=== PATIENT | female | born 1980 | race Caucasian/White ===

== ENCOUNTER 2017-05-14 20:52 | Emergency (ER) | payer OTHER ==
[~2017-05-14] VITALS: Ht 177.8 cm; Wt 129.0 kg
[~2017-05-14 20:52] MED LIST: ACET500T98 PO; AZIT250T94 PO; BACTDS PO; CLIN-73 PO; FAMO-18 PO; FLUT9.9S NASAL; HYDR-3498 PO; HYDR-762 PO; HYDR-906 PO; IBUP-1542 PO; IBUP200C PO; IBUP800T25 PO; INSU100C SC; LORA10TA3 PO; MELO-110 PO; NPH SQ; OMEP20CA16 PO; OXYC1TAB23 PO; ZOF8 PO
[2017-05-14 21:10] VITALS: Ht 177.8 cm; Wt 129.0 kg
[2017-05-14] MEDS ORDERED: ONDANSETRON (ODT) 4 MG TAB ODT STA (21:38)
[2017-05-14] MEDS ORDERED: morphine 10 MG INJ IM ONE (22:00)
--- NOTE | 2017-05-14 22:10 | ERD ---
ER Documentation Chief Complaint Date/Time DATE: 05/14/17 TIME: 22:09 Chief Complaint tooth broke today, tooth pain with headache HPI This is a very pleasant 36 year female who broke her tooth today. She complained of tooth pain and headache. Noted to have severely elevated blood pressure in triage. No nausea no vomiting no focal neurological complaints. No other current issues. ROS All systems reviewed and are negative except as per history of present illness. Medications Home Meds Active Scripts Ibuprofen* (Motrin*) 600 Mg Tab, 600 MG PO Q6H Y for PAIN, #20 TAB Prov:HERNÁN GALDAMEZ MD 07/15/16 Hydrocodone/Acetaminophen ([facility] 5-325 Tablet) 1 Each Tablet, 1 EACH PO QID, # 14 TAB Prov:HERNÁN GALDAMEZ MD 07/15/16 Clindamycin Hcl* (Clindamycin Hcl*) 300 Mg Capsule, 300 MG PO QID for 10 Days, CAP Prov:HERNÁN GALDAMEZ MD 07/15/16 Clindamycin Hcl* (Clindamycin Hcl*) 300 Mg Capsule, 300 MG PO QID for 7 Days, CAP Prov:RABIA ORTIZ NP 01/03/16 Hydrocodone Bit-Acetaminophen* ([facility]*) 5-325 Mg Tab, 1 TAB PO Q6 Y for PAIN, # 7 TAB Prov:RABIA ORTIZ NP 01/03/16 Ondansetron Hcl* (Zofran* ODT) 8 mg -ODT Tab.disper, 8 MG PO DAILY Y for NAUSEA AND/OR VOMITING, #10 TAB 0 Refills Prov:ERMA ROBERTS PA-C 11/23/15 Loratadine* (Loratadine*) 10 Mg Tablet, 10 MG PO DAILY, #30 TAB 0 Refills Prov:ERMA ROBERTS PA-C 11/23/15 Azithromycin* (Zithromax*) 250 Mg Tablet, 250 MG PO .LAYNE DIRECTED, #6 TAB 0 Refills TAKE 500 MG (2 TABS) THE FIRST DAY THEN 250 MG (1 TAB) DAYS 2-5 Prov:ERMA ROBERTS PA-C 11/23/15 Fluticasone Propionate (Flonase Allergy Relief) 9.9 Ml [place].susp, 1 SPRAY NASAL BID, #1 BOTTLE 0 Refills TO EACH NOSTRIL Prov:ERMA ROBERTS PA-C 11/23/15 Ibuprofen* (Ibuprofen*) 200 Mg Capsule, 200 MG PO Q6, #30 CAP 0 Refills Prov:ALEJANDRAERMA ELLER 11/23/15 Acetaminophen (Tylenol) 500 Mg Tab, 500 MG PO Q6, #30 TAB 0 Refills Prov:ALEJANDRAERMA ELLER 11/23/15 Ibuprofen* (Motrin*) 600 Mg Tab, 600 MG PO Q8, #20 Prov:JAYLEN MENA 08/05/15 Hydrocodone Bit-Acetaminophen* ([facility]*) 5-325 Mg Tab, 1 TAB PO Q6 for PAIN, #7 TAB Prov:LEONARDOEJAYLEN MOCK 08/05/15 Ibuprofen* (Motrin*) 600 Mg Tab, 600 MG PO Q8, #20 Prov:LEONARDOEORAJAYLEN 08/05/15 Hydrocodone Bit-Acetaminophen* ([facility]*) 5-325 Mg Tab, 1 TAB PO Q6 Y for PAIN LEVEL 6-10, #7 TAB Prov:JAYLEN MENA 08/05/15 Omeprazole* (Omeprazole*) 20 Mg Capsule.dr, 20 MG PO DAILY, #30 CAP Prov:MESFIN JEAN BAPTISTE PA-C 07/19/15 Famotidine* (Pepcid*) 20 Mg Tablet, 20 MG PO AM for 5 Days, TAB Prov:MESFIN JEAN BAPTISTE PA-C 07/19/15 Ibuprofen* (Ibuprofen*) 800 Mg Tab, 800 MG PO Q6H Y for PAIN, #30 TAB Prov:MESFIN JEAN BAPTISTE PA-C 07/19/15 Oxycodone Hcl-Acetaminophen* (Oxycodone Hcl-Acetaminophen*) 5-325 Mg Tablet, 1 TAB PO Q4H Y for PAIN LEVEL 6-10, #30 TAB Prov:MESFIN JEAN BAPTISTE PA-C 07/19/15 Hydrocodone Bit-Acetaminophen* ([facility]*) 10-325 Mg Tablet, 1 TAB PO Q6 Y for PAIN , #20 TAB Prov:AUDREY HART NP 06/16/15 Ibuprofen* (Ibuprofen*) 600 Mg Tablet, 600 MG PO Q6H Y for back pain, #30 TAB Prov:PAOLA HERNANDEZ 04/16/15 Reported Medications Sulfamethoxazole-Trimethoprim* (Bactrim* DS) 800-160 Mg Tab, 1 TAB PO BID X 3 DAYS, TAB 04/07/15 Meloxicam* (Mobic*) 15 Mg Tablet, 15 MG PO DAILY, TAB 04/07/15 Hydrocodone Bit-Acetaminophen ([facility]) 5-325 Mg Tablet, 1 TAB PO Q6-8 HOURS Y for PAIN, TAB 04/07/15 Insulin Human Nph (Novolin-N) 100 Units/Ml Susp, 0 SQ 04/07/15 Insulin Lispro (Humalog) 100 U/Ml Cartridge, 0 SC SLIDING SCALE AC, EA 04/07/15 Allergies Allergies: Coded Allergies: Penicillins (Verified Allergy, Severe, SEIZURES, 11/23/15) ciprofloxacin (Verified Allergy, Severe, RASHES, 11/23/15) PMhx/Soc History of Surgery: No Anesthesia Reaction: No Hx Neurological Disorder: Yes (SCIATICA; herniated disk) Hx Respiratory Disorders: No Hx Cardiac Disorders: Yes (HTN ) Hx Psychiatric Problems: No Hx Miscellaneous Medical Probl: Yes (iddm) Hx Alcohol Use: Yes (rarely) Hx Substance Use: No Hx Tobacco Use: No Smoking Status: Never smoker Physical Exam Vitals Vital Signs Date Time Temp Pulse Resp B/P Pulse Ox O2 Delivery O2 Flow Rate FiO2 05/14/17 21:32 191/113 05/14/17 21:10 97.4 99 20 218/120 99 Physical Exam Const: [] Head: Atraumatic Eyes: Normal Conjunctiva ENT: Normal External Ears, Nose and Mouth. Neck: Full range of motion..~ No meningismus. Resp: Clear to auscultation bilaterally Cardio: Regular rate and rhythm, no murmurs Abd: Soft, non tender, non distended. Normal bowel sounds Skin: No petechiae or rashes Back: No midline or flank tenderness Ext: No cyanosis, or edema Neur: Awake and alert Psych: Normal Mood and Affect Results 24 hrs Current Medications Medications (Trade) Dose Ordered Sig/Rafael Route PRN Reason Start Time Stop Time Status Last Admin Dose Admin Morphine Sulfate (morphine) 4 mg ONCE ONCE IM 05/14/17 22:00 05/14/17 22:01 DC 05/14/17 21:59 Ondansetron HCl (Zofran Odt) 4 mg ONCE STAT ODT 05/14/17 21:38 05/14/17 21:40 DC 05/14/17 21:59 Clonidine (Catapres) 0.2 mg ONCE ONCE PO 05/14/17 22:00 05/14/17 22:01 DC 05/14/17 21:59 Procedures/MDM Patient's blood pressure was elevated (>120/80) but appears stable without evidence of hypertension emergency or urgency. The patient was counseled about the risks of hypertension and urged to pursue outpatient monitoring and therapy within a week with their primary care physician. Dental she will be treated with clindamycin and [facility]. Follow-up with primary care physician. Departure Diagnosis: Primary Impression: Tooth disease Additional Impression: Hypertension Hypertension type: essential hypertension Qualified Code: I10 - Essential hypertension Condition: Stable TOM MARTÍNEZ May 14, 2017 22:10
[2017-05-14] MEDS ORDERED: HYDR-3671 PO (22:12)
[2017-05-14] MEDS ORDERED: HYDR-902 PO (22:12)
[2017-05-14] MEDS ORDERED: CLIN-73 PO (22:12)
[2017-05-14 22:37] VITALS: BP 151/90; PULSE 87; RESP 16
[2017-05-14] MEDS ORDERED: LANT3I SC (22:42)
[2017-05-14] MEDS ORDERED: METF500T4 PO (22:42)
[2017-05-14] MEDS ORDERED: GLIP-95 PO (22:42)
[2017-05-14] MEDS ORDERED: IBUP200C PO (22:44)
== END 2017-05-14 22:39 | disposition home or self-care (01) ==
LOC: E/R 20:52
DX: K08.9 Disorder of teeth and supporting structures, unspecified (principal); I10 Essential (primary) hypertension; E11.9 Type 2 diabetes mellitus without complications; Z79.4 Long term (current) use of insulin
CPT/HCPCS: 96372; J2270; Z7502; Z7610

== ENCOUNTER 2017-10-31 08:30 | Emergency (ER) | payer OTHER ==
[~2017-10-31] VITALS: Wt 127.3 kg
[~2017-10-31 08:30] MED LIST changes: -AZIT250T94 PO; -BACTDS PO; -FAMO-18 PO; -FLUT9.9S NASAL; +GLIP-95 PO; -HYDR-3498 PO; +HYDR-3671 PO; -HYDR-762 PO; +HYDR-902 PO; -HYDR-906 PO; -IBUP-1542 PO; -IBUP800T25 PO; -INSU100C SC; +LANT3I SC; -LORA10TA3 PO; -MELO-110 PO; +METF500T4 PO; -NPH SQ; -OMEP20CA16 PO; -OXYC1TAB23 PO; -ZOF8 PO
[2017-10-31] MEDS ORDERED: HYDROCODONE/APAP (5/325) TAB PO ONE (10:30)
[2017-10-31 10:42] LABS: URINE BLOOD (Dip) POC Trace-lysed (NEGATIVE)
[2017-10-31] MEDS ORDERED: NITR-58 PO (11:39)
[2017-10-31] MEDS ORDERED: FLUC150T17 PO (11:40)
[2017-10-31] MEDS ORDERED: HYDR-906 PO (11:40)
[2017-10-31] MEDS ORDERED: MUPI22OI2 TOP (11:41)
[2017-10-31 11:53] VITALS: BP 143/88; PULSE 76; RESP 18; TEMP 98.4
--- NOTE | 2017-10-31 12:06 | ERD ---
ER Documentation Chief Complaint Chief Complaint "toothache and yeast infection" HPI This is a 36-year-old female presents to the ER with multiple complaints. Patient developed tooth pain yesterday, it is described as throbbing in quality and constant. She states that she notices a little bit of swelling to her gum, however denies any fevers or chills. Patient is also complaining of a yeast infection which she has had over the last month, she tried [id number] Monistat however did not work. She does have white discharge and has a lot of itchiness. She has a past medical history of diabetes. She is also complaining of urinary frequency and dysuria and states that she has a diabetic ulcer near her lower abdomen. Last normal menstrual period was in August, she states she does not have regular periods she is currently sexually active with one partner and does not use any condoms ROS 12 point review of systems was done, all negative except per HPI. Medications Home Meds Active Scripts Mupirocin* (Bactroban*) 2% -22 Gram Oint...g., 1 APPLIC TOP BID for 7 Days, EA Prov:SADIE GARCIA 10/31/17 Fluconazole* (Diflucan*) 150 Mg Tablet, 150 MG PO ONCE, #1 TAB Prov:SADIE GARCIA 10/31/17 Hydrocodone/Acetaminophen ([facility] 5-325 Tablet) 1 Each Tablet, 1 TAB PO Q6H Y for PAIN, #20 TAB Prov:SADIE GARCIA 10/31/17 Nitrofurantoin Monohyd Macrocr* (Macrobid*) 100 Mg Capsr, 100 MG PO BID for 14 Days, CAP Prov:SADIE GARCIA 10/31/17 Hydralazine Hcl* (Hydralazine Hcl*) 25 Mg Tab, 25 MG PO Q6H, #60 TAB Prov:TOM MARTÍNEZ S. 05/14/17 Hydrocodone/Acetaminophen ([facility] 10-325 Tablet) 1 Each Tablet, 1 TAB PO Q6H Y for PAIN, #20 TAB Prov:TOM MARTÍNEZ S. 05/14/17 Clindamycin Hcl* (Clindamycin Hcl*) 300 Mg Capsule, 300 MG PO TID for 10 Days, CAP Prov:TOM MARTÍNEZ. 05/14/17 Acetaminophen (Tylenol) 500 Mg Tab, 500 MG PO Q6, #30 TAB 0 Refills Prov:ALEJANDRAERMA ELLER 11/23/15 Reported Medications Ibuprofen* (Ibuprofen*) 200 Mg Capsule, 400 MG PO Q6, CAP 05/14/17 Glipizide* (Glipizide*) 10 Mg Tablet, 10 MG PO BID, TAB 05/14/17 Metformin* (Glucophage*) 500 Mg Tab, 1000 MG PO WITH BREAKFAST DINNE, #30 TAB 05/14/17 Insulin Glargine* (Lantus*) 100 Unit/Ml Soln, 90 UNIT SC QHS, #1 VIAL 05/14/17 Allergies Allergies: Coded Allergies: Penicillins (Unverified Allergy, Severe, SEIZURES, 10/31/17) ciprofloxacin (Unverified Allergy, Severe, RASHES, 10/31/17) PMhx/Soc History of Surgery: No Anesthesia Reaction: No Hx Neurological Disorder: Yes (SCIATICA; herniated disk) Hx Respiratory Disorders: No Hx Cardiac Disorders: Yes (HTN ) Hx Psychiatric Problems: No Hx Miscellaneous Medical Probl: Yes (iddm) Hx Alcohol Use: Yes (rarely) Hx Substance Use: No Hx Tobacco Use: No Smoking Status: Never smoker Physical Exam Vitals Vital Signs Date Time Temp Pulse Resp B/P Pulse Ox O2 Delivery O2 Flow Rate FiO2 10/31/17 11:53 98.4 76 18 143/88 96 Room Air 10/31/17 08:41 98.0 80 20 165/76 98 Physical Exam GENERAL: The patient is well developed and appropriate for usual state of health , in no apparent distress. HEENT: Atraumatic. multiple dental caries-> no dental abscess is seen. no pain or fullness to the bottom of the mouth CHEST: Clear to auscultation bilaterally. There are no rales, wheezes or rhonchi. HEART: Regular rate and rhythm. No murmurs, clicks, rubs or gallops. ABDOMEN: Soft, nontender and nondistended. : there is an area of redness and warmth to the touch to the mons pubis NEURO: Alert and oriented. SKIN: There is no apparent rash or petechia. The skin is warm and dry. Results 24 hrs Laboratory Tests Test 10/31/17 10:41 Bedside Urine pH (LAB) 5.5 Bedside Urine Protein (LAB) Negative Bedside Urine Glucose (UA) 0.25% Bedside Urine Ketones (LAB) Negative Bedside Urine Blood Trace-lysed Bedside Urine Nitrite (LAB) Positive Bedside Urine Leukocyte Esterase (L 1+ Current Medications Medications (Trade) Dose Ordered Sig/Rafael Route PRN Reason Start Time Stop Time Status Last Admin Dose Admin Acetaminophen/ Hydrocodone Bitart ([facility] (5/325)) 1 tab ONCE ONCE PO 10/31/17 10:30 10/31/17 10:31 DC 10/31/17 10:33 Procedures/MDM This is a 36-year-old female presents to the ER with multiple complaints. Patient will be sent home with [place] for her dental pain, there is no abscesses i doubt Sam's angina. Regards patient needs injection she will be sent home with Diflucan. She was found to have a urinary tract infection suspicion for pyelonephritis is low. Patient is afebrile and well-appearing she will be sent home with Macrobid. To be given mupirocin for the sore that she has. This is likely abscess as it is not indurated or fluctuant. Patient is to follow-up with her primary care doctor within 1-2 days return to ER sooner if symptoms worsen. Medical does making sure with the patient she understands and agrees with plan. Departure Diagnosis: Primary Impression: UTI (urinary tract infection) Additional Impression: Tooth pain Condition: Stable Patient Instructions: Understanding Urinary Tract Infections (UTIs), Dental Pain Additional Instructions: Call your primary care doctor TOMORROW for an appointment during the next 1-2 days.See the doctor sooner or return here if your condition worsens before your appointment time. SADIE GARCIA Oct 31, 2017 12:06
== END 2017-10-31 11:53 | disposition home or self-care (01) ==
LOC: FTE 08:30
DX: N39.0 Urinary tract infection, site not specified (principal); I10 Essential (primary) hypertension; E11.9 Type 2 diabetes mellitus without complications; Z79.84 Long term (current) use of oral hypoglycemic drugs; Z79.4 Long term (current) use of insulin
CPT/HCPCS: 81003; Z7502; Z7610; 99284